=== PATIENT | male | born 1960 | race Caucasian/White ===

== ENCOUNTER 2017-05-31 20:00 | Emergency (ER) | payer OTHER ==
[~2017-05-31] VITALS: Ht 180.3 cm; Wt 109.1 kg
[2017-05-31 20:20] VITALS: Ht 180.3 cm; Wt 109.1 kg
[2017-05-31] MEDS ORDERED: HYDROCODONE/APAP (5/325) TAB PO ONE (21:30)
[2017-05-31] MEDS ORDERED: DIPHTH/TET/ACEL PERTUSS (ADULT) 0.5 ML VIAL IM* ONE (21:30)
--- NOTE | 2017-05-31 21:31 | ERD ---
ER Documentation Chief Complaint Chief Complaint [facility] fall today; abrasion on L elbow; pain on L arm radiating to chest HPI 57-year-old male who presents emergency department for mechanical fall that happened today at around 7:30 AM while he was working. 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 Developed a laceration to the lateral aspect of his elbow. Also complains of left-sided chest pain after the fall. We will just stated that he landed on his left elbow and left chest. He was able to walk after the injury. Stated that he had a tetanus shot 2 years ago. Denies headache, head trauma, dizziness, throat pain, neck pain, shoulder pain, abdominal pain, nausea, vomiting, difficulty breathing when lying flat, constipation, diarrhea, loss of bowel bladder control, changes in bowel and bladder habits, difficulty walking, numbness or tingling sensation, recent long travel, recent antibiotic use the last 3 months, fever, chills. ROS All systems reviewed and are negative except as per history of present illness. Medications Home Meds Active Scripts Ibuprofen* (Motrin*) 800 Mg Tab, 800 MG PO Q8 Y for PAIN AND OR ELEVATED TEMP, # 15 TAB Prov:RTIAILABAN,TAVIAAR F 05/31/17 Acetaminophen* (Tylophen*) 500 Mg Capsule, 1 CAP PO Q6H Y for PAIN AND OR ELEVATED TEMP, #20 CAP Prov:PASILABAN,TAVIAAR F 05/31/17 Cephalexin* (Keflex*) 500 Mg Capsule, 500 MG PO QID for 5 Days, CAP Prov:PASILABAN,TAVIAAR F 05/31/17 Allergies Allergies: Coded Allergies: No Known Allergy (Unverified , 05/31/17) PMhx/Soc History of Surgery: Yes (LF SHLDR, HERNIA, PROSTATE, GASTRIC BYPASS) Anesthesia Reaction: No Hx Neurological Disorder: No Hx Respiratory Disorders: No Hx Cardiac Disorders: No Hx Psychiatric Problems: No Hx Miscellaneous Medical Probl: No Hx Alcohol Use: No Hx Substance Use: No Hx Tobacco Use: No Smoking Status: Never smoker Physical Exam Vitals Vital Signs Date Time Temp Pulse Resp B/P Pulse Ox O2 Delivery O2 Flow Rate FiO2 05/31/17 20:20 97.7 74 20 182/88 98 Physical Exam Const: Well-appearing. Not in acute distress. Head: Atraumatic Eyes: Normal Conjunctiva ENT: Normal External Ears, Nose and Mouth. Neck: Full range of motion..~ No meningismus. Resp: Clear to auscultation bilaterally Cardio: Regular rate and rhythm, no murmurs Abd: Soft, non tender, non distended. Normal bowel sounds Skin: No petechiae or rashes. 2 cm laceration to the dorsal area of left elbow. Left elbow has good and full range of motion and has no deformity. Left shoulder is unremarkable. Left wrist/hand is unremarkable. Right upper extremities unremarkable. Left chest has mild abrasion with no crepitus. Back: No midline or flank tenderness Ext: No cyanosis, or edema. Moves all 4 extremities.. Neur: Awake and alert. No neurological deficits. Psych: Normal Mood and Affect Results 24 hrs Current Medications Medications (Trade) Dose Ordered Sig/Fan Route PRN Reason Start Time Stop Time Status Last Admin Dose Admin Diphtheria/ Tetanus/Acell Pertussis (Adacel) 0.5 ml ONCE ONCE IM* 05/31/17 21:30 05/31/17 21:31 DC Acetaminophen/ Hydrocodone Bitart ([place] (5/325)) 1 tab ONCE ONCE PO 05/31/17 21:30 05/31/17 21:31 DC Bacitracin (Bacitracin Oint (Ud)) 1 applic ONCE ONCE TOP 05/31/17 23:30 05/31/17 23:31 DC 06/01/17 00:11 Procedures/MDM Chest x-ray: No acute cardiopulmonary process identified. Thoracic spine enthesopathy. Elbow x-ray: Negative for evidence of acute fracture or dislocation of the elbow. Dorsal soft tissue swelling. EKG: Sinus bradycardia with a ventricular rate of 58 bpm. No STEMI. Read by supervising emergency room physician, Dr. Velez. Procedure: Laceration repair to left elbow measuring approximately 2 cm in length. Pressure/copious irrigation with saline and Betadine to laceration site. Betadine prep. Wound was explored. Tendons not visualized. Ligament not visualized. Bone not visualized. No foreign bodies found. Lidocaine 1% 5 cc subcu. Ethilon 4-0 5 simple interrupted sutures. Reevaluation: Denies chest pain, elbow pain. No crepitus. Lung sounds are clear to auscultation. No neurovascular deficits prior to and after the application of dressing to left elbow. Differential diagnosis includes but not limited to pneumothorax versus hemothorax versus rib fractures versus elbow fracture versus elbow dislocation versus elbow contusion versus elbow sprain versus multiple contusions versus laceration/punctured wound secondary to injury Final diagnosis: Multiple contusions direct injury. Elbow laceration secondary to injury. Case was discussed with supervising emergency room physician, Dr. Tamir Nayak who agreed in my medical decision making not to give a tetanus shot and prescribed patient with antibiotics and pain medication. Prescription: Keflex. Tylenol. Motrin. Follow-up with PCP in the next 24-48 hours. Come back here in the emergency department in 2 days for a wound check. Come back here in the emergency department 10 days for suture removal. All questions and concerns are answered. Patient and family member verbalized understanding and agreed with the plan of care. Hemodynamically stable on discharge. . Departure Diagnosis: Primary Impression: Laceration Additional Impressions: Puncture wound Rib contusion Multiple contusions Condition: Stable Additional Instructions: Follow-up with PCP in the next 24-48 hours. Come back here in the emergency department in 2 days for a wound check. Come back here in the emergency department 10 days for suture removal. All questions and concerns are answered. Patient and family member verbalized understanding and agreed with the plan of care. ROQUE FAN May 31, 2017 21:31
--- NOTE | 2017-05-31 22:36 | RADRPT ---
PROCEDURE: Chest. CLINICAL INDICATION: Chest pain. TECHNIQUE: PA and Lateral views of the chest were obtained. COMPARISON: None. FINDINGS: The cardiac silhouette is within normal limits. The aortic arch is unremarkable. There is no focal c onsolidation, vascular congestion or pleural effusion. There is no pneumothorax. There are moderate anterior marginal osteophytes along the spine. IMPRESSION: No acute cardiopulmonary process identified. Thoracic spine enthesopathy. .Harsh Swan MD, MD Date Time Electronically viewed and signed by .Harsh Swan MD, MD on 05/31/2017 22:35 .T/
--- NOTE | 2017-05-31 22:37 | RADRPT ---
PROCEDURE: XR Elbow. CLINICAL INDICATION: 57 years of age, male. Injury. Pain. Laceration. TECHNIQUE: Three views of the left elbow. COMPARISON: None available. FINDINGS: Negative for evidence of acute fracture. Normal alignment. Negative for evidence of elbow joint effusion. There is soft tissue swelling at the dorsal aspect of the elbow. Additional comment: There is moderate osteoarthritis with joint space narrowing and osteophytes gre atest at the humeral ulnar joint. There is enthesophyte at the olecranon process. IMPRESSION: Negative for evidence of acute fracture or dislocation of the left elbow. Dorsal soft tissue swelling. RPTAT: [facility] Physician Jhon Date Time Electronically viewed and signed by Physician Jhon on 05/31/2017 22:37 /
[2017-05-31] MEDS ORDERED: ACET500C5 PO (23:20)
[2017-05-31] MEDS ORDERED: CEPH-443 PO (23:20)
[2017-05-31] MEDS ORDERED: IBUP800T25 PO (23:21)
[2017-05-31] MEDS ORDERED: BACITRACIN 0.9 GM OINT TOP ONE (23:30)
== END 2017-06-01 00:13 | disposition home or self-care (01) ==
LOC: FTE 20:00
DX: S51.012A Laceration without foreign body of left elbow, initial encounter (principal); S20.212A Contusion of left front wall of thorax, initial encounter; V58.0XXA Driver of pick-up truck or van injured in noncollision transport accident in nontraffic accident, initial encounter
CPT/HCPCS: 71020; 90715; 93005